=== PATIENT | male | born 1960 | race Hispanic/Latino ===

== ENCOUNTER 2021-08-23 07:21 | Inpatient (IN) | payer SELFPAY ==
[2021-08-23] MEDS ORDERED: ALBUTEROL 2.5 MG/3 ML NEBU IH ONE ×2 (08:00→14:26)
[2021-08-23] MEDS ORDERED: methylPREDNISolone Sod Succinate 125 MG/2 ML INJ IV ONE (08:00)
[2021-08-23] MEDS ORDERED: MAGNESIUM SULFATE 2 GM/50 ML BAG IV ONE (08:00)
[2021-08-23] MEDS ORDERED: IPRATROPIUM 0.02% NEBU 2.5 ML IH ONE ×2 (08:00→14:26)
[2021-08-23 08:19] LABS: Basophils % (Auto) 0.4 % (0.0-1.8); Eosinophils % (Auto) 0.5 % (0.0-4.3); Lymphocytes % (Auto) 10.3 % (13.4-35.0); Mean Corpuscular HGB Conc 32 % (32-34); Mean Corpuscular Volume 98 fl (84-94); Monocytes # (Auto) 0.6 K/mm3 (0.0-0.8); Monocytes % (Auto) 6.1 % (0.0-7.3); Platelet Count 161 K/mm3 (140-440); Red Blood Count 5.93 M/mm3 (3.65-5.03); Red Cell Distribution Width 14.7 % (13.2-15.2)
[2021-08-23 08:22] LABS: Hematocrit 57.8 % (35.5-45.6); Hemoglobin 18.2 gm/dl (11.8-15.2)
[2021-08-23 08:45] LABS: Alanine Aminotransferase 19 units/L (7-56); Albumin 4.1 g/dL (3.9-5); BUN/Creatinine Ratio 26; Blood Urea Nitrogen 21 mg/dL (9-20); Calcium 8.7 mg/dL (8.4-10.2); Hemolysis Index 11
[2021-08-23] MEDS ORDERED: AZITHROMYCIN/NS 500 MG/250 ML 500 MG/250 ML BAG IV ONE (09:03)
[2021-08-23] MEDS ORDERED: cefTRIAXone/NS 1 GM/50 ML 1 GM/50 ML BAG IV ONE (09:03)
[2021-08-23 10:04] LABS: C-Reactive Protein 0.2 mg/dL (0.00-1.30)
[2021-08-23 15:25] LABS: ABG HCO3 35.6 mmol/L (20.0-26.0); ABG PCO2 112.4 mm Hg; ABG PO2 81.3 mm Hg (80.0-90.0)
[2021-08-23 15:30] LABS: ABG Methemoglobin 0.3 % (0.0-1.5); ABG Oxygen Saturation 94.5 % (95.0-99.0)
[2021-08-23 15:42] LABS: ABG PH 7.12 pH Units (7.350-7.450)
[2021-08-23] MEDS ORDERED: ACETAMINOPHEN 650 MG RECT SUPP PR PRN (16:22)
[2021-08-23] MEDS ORDERED: MORPHINE 2 MG/1 ML INJ IV PRN (16:34)
[2021-08-23] MEDS ORDERED: ONDANSETRON 4 MG/2 ML INJ IV PRN (16:34)
[2021-08-23] MEDS ORDERED: cefTRIAXone/NS 2 GM/100 ML 2 GM/100 ML BAG IV SCH (17:00)
[2021-08-23] MEDS ORDERED: AZITHROMYCIN/NS 500 MG/250 ML 500 MG/250 ML BAG IV SCH (17:00)
[2021-08-23] MEDS: IPRATROPIUM/ALBUTEROL SULFATE 3 ML AMPUL.NEB IH SCH ×2 (17:52→21:25)
[2021-08-23 18:00] LABS: ABG Base Excess 0.6 mmol/L (-2.0-3.0); ABG HCO3 32.8 mmol/L (20.0-26.0); ABG Methemoglobin 0.4 % (0.0-1.5); ABG Oxygen Saturation 92.5 % (95.0-99.0); ABG PCO2 89.2 mm Hg
[2021-08-23] MEDS ORDERED: ETOMIDATE 20 MG/10 ML INJ IV ONE ×2 (18:09→19:47)
[2021-08-23] MEDS ORDERED: ROCURONIUM 50 MG/5 ML INJ IV ONE ×2 (18:09→19:48)
[2021-08-23 18:10] LABS: ABG PH 7.183 pH Units (7.350-7.450)
[2021-08-23] MEDS ORDERED: MIDAZOLAM 5 MG/5 ML INJ MDV IV ONE (18:27)
[2021-08-23] MEDS: methylPREDNISolone Sod Succinate 40 MG/1 ML INJ IV SCH (18:49)
[2021-08-23] MEDS ORDERED: MIDAZOLAM 5 MG/5 ML INJ MDV IV NR ×2 (19:00→20:00)
[2021-08-23] MEDS ORDERED: MIDAZOLAM/NS Drip 100mg/100ml 100 MG/100 ML BAG IV SCH ×2 (19:00)
[2021-08-23 19:41] LABS: Bacteria,Urine 1+ /HPF (Negative); Bilirubin,Urine NEG (Negative); Blood,Urine LG (Negative); Color,Urine Yellow (Yellow); Mucus,Urine FEW /HPF; Urobilinogen,Urine < 2.0 mg/dL (<2.0)
[2021-08-23 19:47] LABS: RBC,Urine > 182.0 /HPF (0.0-6.0)
[2021-08-23 20:06] LABS: Amphetamine Screen,Urine Negative; Cannabinoid Screen,Urine Negative; Cocaine Screen,Urine Negative; Methadone Screen,Urine Negative; Opiate Screen,Urine Negative
[2021-08-23 21:11] LABS: Benzodiazepines Screen,Urine PRESUMPTIVE POSITIVE
[2021-08-23] MEDS: FAMOTIDINE 20 MG/2 ML INJ IV SCH (21:15)
[2021-08-23] MEDS: D5W/0.45% NACL 1,000 ML IV SCH (21:15)
[2021-08-23] MEDS: BUDESONIDE 0.5 MG/2 ML NEBU IH SCH (21:25)
[2021-08-23 21:36] LABS: ABG Base Excess 2.6 mmol/L (-2.0-3.0); ABG HCO3 32.6 mmol/L (20.0-26.0); ABG Methemoglobin 0.4 % (0.0-1.5); ABG Oxygen Saturation 95.9 % (95.0-99.0); ABG PCO2 74.9 mm Hg; ABG PH 7.257 pH Units (7.350-7.450); ABG PO2 88.2 mm Hg (80.0-90.0)
[2021-08-24] MEDS: methylPREDNISolone Sod Succinate 40 MG/1 ML INJ IV SCH ×5 (00:32→23:45)
[2021-08-24] MEDS: IPRATROPIUM/ALBUTEROL SULFATE 3 ML AMPUL.NEB IH SCH ×4 (05:00→19:33)
[2021-08-24 05:08] LABS: ABG Base Excess 4.8 mmol/L (-2.0-3.0); ABG HCO3 32.6 mmol/L (20.0-26.0); ABG Methemoglobin 0.5 % (0.0-1.5); ABG Oxygen Saturation 95.8 % (95.0-99.0); ABG PCO2 60.7 mm Hg; ABG PH 7.347 pH Units (7.350-7.450); ABG PO2 80.9 mm Hg (80.0-90.0)
[2021-08-24] MEDS: D5W/0.45% NACL 1,000 ML IV SCH ×2 (05:10→15:21)
[2021-08-24 05:38] LABS: Hematocrit 49.3 % (35.5-45.6); Hemoglobin 15.5 gm/dl (11.8-15.2); Mean Corpuscular HGB Conc 32 % (32-34); Mean Corpuscular Volume 97 fl (84-94); Platelet Count 141 K/mm3 (140-440); Red Blood Count 5.09 M/mm3 (3.65-5.03)
[2021-08-24 06:03] LABS: Alanine Aminotransferase 13 units/L (7-56); Albumin 3.4 g/dL (3.9-5); BUN/Creatinine Ratio 25; Blood Urea Nitrogen 20 mg/dL (9-20); Calcium 8.5 mg/dL (8.4-10.2); Hemolysis Index 21
[2021-08-24 06:42] LABS: Anisocytosis 1+; Basophils % (Manual) 0 % (0.0-1.8); Eosinophils % (Manual) 0 % (0.0-4.3); Platelet Estimate Consistent w Auto; Total Cells Counted 100
[2021-08-24] MEDS: BUDESONIDE 0.5 MG/2 ML NEBU IH SCH ×2 (07:56→19:33)
[2021-08-24] MEDS ORDERED: SODIUM POLYSTYRENE 15 GM/60 ML ORAL LIQD PO NR (08:00)
[2021-08-24] MEDS: cefTRIAXone/NS 2 GM/100 ML 2 GM/100 ML BAG IV SCH (08:23)
[2021-08-24] MEDS: AZITHROMYCIN/NS 500 MG/250 ML 500 MG/250 ML BAG IV SCH (09:50)
[2021-08-24] MEDS: FAMOTIDINE 20 MG/2 ML INJ IV SCH ×2 (09:50→21:02)
[2021-08-24] MEDS ORDERED: ACETAMINOPHEN 650 MG RECT SUPP PR PRN (10:00)
[2021-08-24] MEDS ORDERED: FUROSEMIDE 20 MG/2 ML INJ IV SCH (11:00)
[2021-08-24] MEDS: ACETAMINOPHEN 325 MG TAB PO PRN (14:32)
[2021-08-24] MEDS: ENOXAPARIN 40 MG/0.4 ML INJ SUB-Q SCH (21:02)
[2021-08-24] MEDS ORDERED: ENOXAPARIN 30 MG/0.3 ML INJ SUB-Q SCH (22:00)
[2021-08-25] MEDS: IPRATROPIUM/ALBUTEROL SULFATE 3 ML AMPUL.NEB IH SCH ×4 (01:55→20:21)
[2021-08-25] MEDS: methylPREDNISolone Sod Succinate 40 MG/1 ML INJ IV SCH ×3 (05:52→20:14)
[2021-08-25] MEDS: BUDESONIDE 0.5 MG/2 ML NEBU IH SCH ×2 (08:01→20:21)
[2021-08-25 08:18] LABS: Hemoglobin 15.2 gm/dl (11.8-15.2); Mean Corpuscular HGB Conc 32 % (32-34); Mean Corpuscular Volume 96 fl (84-94); Platelet Count 139 K/mm3 (140-440); Red Blood Count 5.01 M/mm3 (3.65-5.03); Red Cell Distribution Width 13.9 % (13.2-15.2)
[2021-08-25 08:52] LABS: Blood Urea Nitrogen 19 mg/dL (9-20); Calcium 8.5 mg/dL (8.4-10.2); Hemolysis Index 30
[2021-08-25] MEDS: ACETAMINOPHEN 325 MG TAB PO PRN (08:53)
[2021-08-25 08:58] LABS: BUN/Creatinine Ratio 27
[2021-08-25] MEDS: AZITHROMYCIN/NS 500 MG/250 ML 500 MG/250 ML BAG IV SCH (08:59)
[2021-08-25] MEDS: FAMOTIDINE 20 MG/2 ML INJ IV SCH ×2 (09:01→21:19)
[2021-08-25] MEDS: cefTRIAXone/NS 2 GM/100 ML 2 GM/100 ML BAG IV SCH (11:21)
[2021-08-25] MEDS: ENOXAPARIN 40 MG/0.4 ML INJ SUB-Q SCH (21:19)
[2021-08-26] MEDS: methylPREDNISolone Sod Succinate 40 MG/1 ML INJ IV SCH ×3 (00:05→14:05)
[2021-08-26] MEDS: IPRATROPIUM/ALBUTEROL SULFATE 3 ML AMPUL.NEB IH SCH ×3 (05:13→15:00)
[2021-08-26] MEDS: BUDESONIDE 0.5 MG/2 ML NEBU IH SCH (09:25)
[2021-08-26] MEDS: cefTRIAXone/NS 2 GM/100 ML 2 GM/100 ML BAG IV SCH (09:44)
[2021-08-26] MEDS: FAMOTIDINE 20 MG/2 ML INJ IV SCH (09:44)
[2021-08-26] MEDS: AZITHROMYCIN/NS 500 MG/250 ML 500 MG/250 ML BAG IV SCH (10:43)
[2021-08-26 12:54] VITALS: BP 120/72
== END 2021-08-26 18:27 | disposition home or self-care (01) | DRG 208 ==
LOC: ED 07:21 → CC1 16:34 → 3A 08-24 22:46
PROVIDERS: ADMIT Internal Medicine; ATTEND Hospitalist
PROC: 5A1935Z Respiratory Ventilation, Less than 24 Consecutive Hours (ICD-10-PCS; principal; 2021-08-23)
PROC: 0BH17EZ Insertion of Endotracheal Airway into Trachea, Via Natural or Artificial Opening (ICD-10-PCS; 2021-08-23)
PROC: 5A09357 Assistance with Respiratory Ventilation, Less than 24 Consecutive Hours, Continuous Positive Airway Pressure (ICD-10-PCS; 2021-08-23)
PROC: 5A09357 Assistance with Respiratory Ventilation, Less than 24 Consecutive Hours, Continuous Positive Airway Pressure (ICD-10-PCS; 2021-08-25)
DX: J96.01 Acute respiratory failure with hypoxia (principal); J18.9 Pneumonia, unspecified organism; G93.41 Metabolic encephalopathy; I50.33 Acute on chronic diastolic (congestive) heart failure; J44.1 Chronic obstructive pulmonary disease with (acute) exacerbation; J90 Pleural effusion, not elsewhere classified; J96.02 Acute respiratory failure with hypercapnia; F17.210 Nicotine dependence, cigarettes, uncomplicated; Z20.822 Contact with and (suspected) exposure to COVID-19; I25.10 Atherosclerotic heart disease of native coronary artery without angina pectoris; E87.5 Hyperkalemia; I27.20 Pulmonary hypertension, unspecified
CPT/HCPCS: 36415; 71045; 71275; 80048; 80053; 80307; 81001; 82140; 82728; 82803; 82947; 82962; 83615; 83880; 84145; 84484; 85007; 85025; 85027; 85379; 86140; 87040; 87070; 87205; 93005; 93010; 93306; 93970; 94002; 94003; 94640; 94644; 94660; 94760; G0378; J3490; J7070; C8929; J0456; J0696; J1650; J1940; J2250; J2920; J2930; J3475; Q9967; U0003